=== PATIENT | female | born 1995 | race Caucasian/White ===

== ENCOUNTER 2021-03-24 15:46 | Emergency (ER) | payer SELFPAY ==
[2021-03-24 16:02] VITALS: BP 139/84; PULSE 77; RESP 18; TEMP 36.7; O2SAT 99
[2021-03-24 16:26] LABS: Add Manual Diff / Slide Review NO; Basophils Absolute Auto 0 /uL (0-100); Basophils Percent Auto 0.6 % (0-2); Eosinophils Absolute Auto 0 /uL (0-450); Eosinophils Percent Auto 0.4 % (2-4); Hematocrit 41.2 % (36-46); Hemoglobin 14.4 g/dL (12.0-16.0); Lymphocytes Absolute Auto 1800 /uL (1100-4500); Lymphocytes Percent Auto 22.9 % (25-40); Mean Corpuscular HGB Conc 34.9 % (30-36); Mean Corpuscular Volume 91.6 fL (80-100); Monocytes Absolute Auto 500 /uL (0-900); Monocytes Percent Auto 6.9 % (3-14); Neutrophils Absolute Auto 5400 /uL (1500-7000); Neutrophils Percent Auto 69.2 % (50-75); Platelet Count 239 X10^3/uL (150-400); Red Cell Distribution Width 12.2 % (11.6-14.8); White Blood Cell Count 7.8 X10^3/uL (4.5-11.0)
[2021-03-24 17:03] LABS: BUN Creatinine Ratio 14.5 (6-22); Blood Urea Nitrogen 8 mg/dL (7-17); Calcium 9.4 mg/dL (8.4-10.2); Carbon Dioxide 23 mmol/L (22-32); Chloride 108 mmol/L (98-107); Estimated Glomerular Filt Rate > 60.0 mL/min (>60); Glucose 89 mg/dL (70-100); HEMOLYSIS < 15 (0-50); Potassium 3.4 mmol/L (3.4-5.1); Sodium 142 mmol/L (137-145)
[2021-03-24 17:52] VITALS: PULSE 84; O2SAT 99
[2021-03-24 18:00] VITALS: BP 115/60; PULSE 74; O2SAT 98
[2021-03-24] MEDS: IBUPROFEN 400 MG TABLET 800 MG PO (18:23)
--- NOTE | 2021-03-26 12:35 | ED_ITS ---
HPI - Female Genitourinary <Kiet Valverde PA-C - Last Filed: 03/26/21 13:00> General Chief complaint: Vaginal Bleeding Stated complaint: sent for US, possible miscarriage Time Seen by Provider: 03/24/21 16:19 Source: patient Mode of arrival: Ambulatory Limitations: no limitations History of Present Illness HPI Narrative: 25-year-old female with past medical history endometriosis presents to the ED with 3 weeks of vaginal bleeding and pelvic cramping. Patient endorses a prior history of endometriosis with a history of dysmenorrhea. Patient states that she has been on her period for 3 weeks. Denies heavy bleeding, dizziness, lightheadedness, chest pain, shortness of breath, syncope, nausea, vomiting, dysuria. endorses 4/10 pelvic cramping. Related Data Home Medications Medication Instructions Recorded Confirmed calcitriol 3 mcg/gram topical 1 applic TOPICAL ONCE g 01/13/21 01/13/21 ointment (Vectical) levothyroxine 125 mcg capsule 125 mcg PO DAILY 01/13/21 01/13/21 Allergies Allergy/AdvReac Type Severity Reaction Status Date / Time adhesive tape AdvReac Intermediate Rash Verified 03/24/21 16:07 Review of Systems <Kiet Valverde PA-C - Last Filed: 03/26/21 13:00> Constitutional Constitutional: Denies chills, Denies fatigue, Denies fever(s), Denies frequent falls, Denies lethargy and Denies weakness Eyes Eyes: Denies change in vision, Denies eye discharge, Denies irritation and Denies loss of vision Comments: No lightheadedness ENT Ears, Nose, Mouth, and Throat: Denies change in voice, Denies dizziness, Denies neck pain, Denies sore throat and Denies throat swelling Cardiovascular Cardiovascular: Denies chest pain, Denies irregular heart rhythm, Denies ligh theadedness, Denies palpitations, Denies dyspnea, Denies dyspnea on exertion and Denies orthopnea Respiratory Respiratory: Denies cough, Denies dyspnea, Denies dyspnea on exertion and Denies wheezing Gastrointestinal Gastrointestinal: Denies abdominal pain, Denies change in bowel habits, Denies diarrhea, Denies nausea and Denies vomiting Genitourinary Genitourinary: Reports abnormal menses and Reports pelvic pain Comments: Vaginal bleeding for 3 weeks with pelvic cramping Musculoskeletal Musculoskeletal: Denies neck pain and Denies numbness Integumentary/Breasts Skin/Breast: Denies pruritus, Denies erythema, Denies rash and Denies wounds Neurologic Neurologic: Denies behavioral changes, Denies confusion, Denies dizziness, Denies frequent falls, Denies loss of vision, Denies numbness and Denies weakness Psychiatric Psychiatric: Denies anxiety, Denies behavioral changes, Denies confusion, Denies depression, Denies homicidal ideation and Denies suicidal ideation Endocrine Endocrine: Denies fatigue, Denies flushing and Denies palpitations Hematologic/Lymphatic Hematologic/Lymphatic: Denies easy bruising Allergic/Immunologic Allergic/Immunologic: Denies urticaria, Denies throat swelling and Denies wheezing Patient History <Kiet Valverde PA-C - Last Filed: 03/26/21 13:00> alcohol intake frequency: 0-2 drinks per day Substance Use Type: marijuana Exam <Kiet Valverde PA-C - Last Filed: 03/26/21 13:00> Initial Vital Signs Initial Vital Signs: Vital Signs Temperature 98.1 F 03/24/21 16:02 Pulse Rate 77 03/24/21 16:02 Respiratory Rate 18 03/24/21 16:02 Blood Pressure 139/84 03/24/21 16:02 Pulse Oximetry 99 03/24/21 16:02 Const General: cooperative HENMT Head: normocephalic and atraumatic Ears: external ears normal and TM's normal bilaterally Nose: external nose normal and No nasal discharge Face and sinus: sinuses nontender, face symmetric, no sinus tenderness and No dry mucous membranes Mouth: oral mucosae normal and moist mucous membranes Teeth and gingiva: dentition normal Throat: tonsils normal and uvula midline Eyes General: appearance normal, both eyes and all related structures Eyelids: eyelids normal Conjunctivae: conjunctivae normal Sclera: sclerae normal Pupils: PERRL EOM: EOM intact bilaterally Neck Neck: normal visual inspection, trachea midline, No lymphadenopathy, No midline deformity and No JVD Lymphatic: No lymphedema Chest Chest: normal inspection of the chest Resp Effort & Inspection: normal respiratory effort, able to speak in complete sentences, no respiratory distress and no use of accessory muscles Auscultation: clear to auscultation bilaterally, no rales, no rhonchi and no wheezes Cardio Rate: regular rate Rhythm: regular rhythm Heart Sounds: no click, no gallops, no murmurs and no rubs Pulses: normal peripheral pulses GI Inspection: non-distended Palpation: soft, no hepatosplenomegaly, No guarding, No pulsatile mass and No tender Auscultation: normal bowel sounds Other: Soft abdomen with no TTP of abdomen, pelvis. Back/Spine/Pelvis Back: No CVA tenderness Cervical Spine: cervical ROM normal and No pain with cervical ROM Thoracic/Lumbar Spine: thoracic and lumbar spine normal to inspection Skin General: no rashes or lesions noted, No jaundice and No petechiae Neuro General: patient alert, patient oriented x3, gait normal and no focal motor deficits Speech: speech normal Extrem General: full ROM, no clubbing, cyanosis or edema, no pedal edema and no calf tenderness Psych Appearance: well kempt Mental Status: mental status grossly normal Attitude: cooperative Thought Content: normal and suicidality Judgment: judgment good <DO Billy Shepard Last Filed: 03/27/21 08:27> Initial Vital Signs Initial Vital Signs: Vital Signs Temperature 98.1 F 03/24/21 16:02 Pulse Rate 77 03/24/21 16:02 Respiratory Rate 18 03/24/21 16:02 Blood Pressure 139/84 03/24/21 16:02 Pulse Oximetry 99 03/24/21 16:02 Course <Kiet Valverde PA-C - Last Filed: 03/26/21 13:00> Course Course Narrative: Patient's symptoms improved with ibuprofen. Labs WNL, H/H stable, HCG neg. DC home with date night caregiver f/u. Patient will see the visiting date night caregiver at [facility]. Orders Ordered: Discontinued Medications Ibuprofen (Ibuprofen 400 Mg Tablet) 800 mg PO NOW ONE Stop: 03/24/21 18:19 Last Admin: 03/24/21 18:23 Dose: 800 mg Documented by: SARAN <Elvi Oliva DO - Last Filed: 03/27/21 08:27> Orders Ordered: Discontinued Medications Ibuprofen (Ibuprofen 400 Mg Tablet) 800 mg PO NOW ONE Stop: 03/24/21 18:19 Last Admin: 03/24/21 18:23 Dose: 800 mg Documented by: SARAN MDM - Female Genitourinary <Kiet Valverde PA-C - Last Filed: 03/26/21 13:00> Medical Records Attestation: I reviewed the patient's medical records. Lab Data Attestation: I reviewed the patient's lab results. Lab results narrative: Labs WNL, H/H stable, HCG neg. Result diagrams: 03/24/21 16:16 03/24/21 16:16 Labs: Lab Results 03/24/21 03/24/21 Range/Units 16:16 16:16 WBC 7.8 (4.5-11.0) X10^3/uL RBC 4.50 (4.0-5.2) X10^6/uL Hgb 14.4 (12.0-16.0) g/dL Hct 41.2 (36-46) % MCV 91.6 (80-100) fL MCH 32.0 (26-34) PG MCHC 34.9 (30-36) % RDW 12.2 (11.6-14.8) % Plt Count 239 (150-400) X10^3/uL Neut % (Auto) 69.2 (50-75) % Lymph % (Auto) 22.9 L (25-40) % [place] % (Auto) 6.9 (3-14) % Eos % (Auto) 0.4 L (2-4) % Baso % (Auto) 0.6 (0-2) % Neut # (Auto) 5400 (9688-4352) /uL Lymph # (Auto) 1800 (2411-5761) /uL [place] # (Auto) 500 (0-900) /uL Eos # (Auto) 0 (0-450) /uL Baso # (Auto) 0 (0-100) /uL Sodium 142 (137-145) mmol/L Potassium 3.4 (3.4-5.1) mmol/L Chloride 108 H (98-107) mmol/L Carbon Dioxide 23 (22-32) mmol/L BUN 8 (7-17) mg/dL Creatinine 0.55 (0.52-1.04) mg/dL Estimated GFR > 60.0 (>60) mL/min BUN/Creatinine Ratio 14.5 (6-22) Glucose 89 (70-100) mg/dL Calcium 9.4 (8.4-10.2) mg/dL Point of Care Testing Test Results Negative Urine Dip Bedside Urine Glucose Negative Bedside Urine Bilirubin - Negative Bedside Urine Ketone ++ 40 Urine Specific [place] 1.015 Bedside Urine Occult Blood +++ Bedside Urine pH 6.0 Bedside Urine Protein - Negative Bedside Urine Urobilinogen - Negative Bedside Urine Nitrite - Negative Bedside Urine Leukocytes - Negative Esterase MDM Narrative Medical decision making narrative: 25-year-old female with past medical history endometriosis presents to the ED with 3 weeks of vaginal bleeding and pelvic cramping. Concern for intrauterine versus ectopic versus endometriosis Versus miscarriage versus anemia. unlikely ovarian torsion given symptoms and history. Will obtain ECG, labs. Will treat pain with ibuprofen. Will reassess. Likely discharge home with date night caregiver follow-up. <Elvi Oliva DO - Last Filed: 03/27/21 08:27> Lab Data Labs: Lab Results 03/24/21 03/24/21 Range/Units 16:16 16:16 WBC 7.8 (4.5-11.0) X10^3/uL RBC 4.50 (4.0-5.2) X10^6/uL Hgb 14.4 (12.0-16.0) g/dL Hct 41.2 (36-46) % MCV 91.6 (80-100) fL MCH 32.0 (26-34) PG MCHC 34.9 (30-36) % RDW 12.2 (11.6-14.8) % Plt Count 239 (150-400) X10^3/uL Neut % (Auto) 69.2 (50-75) % Lymph % (Auto) 22.9 L (25-40) % [place] % (Auto) 6.9 (3-14) % Eos % (Auto) 0.4 L (2-4) % Baso % (Auto) 0.6 (0-2) % Neut # (Auto) 5400 (3810-5760) /uL Lymph # (Auto) 1800 (0712-8675) /uL [place] # (Auto) 500 (0-900) /uL Eos # (Auto) 0 (0-450) /uL Baso # (Auto) 0 (0-100) /uL Sodium 142 (137-145) mmol/L Potassium 3.4 (3.4-5.1) mmol/L Chloride 108 H (98-107) mmol/L Carbon Dioxide 23 (22-32) mmol/L BUN 8 (7-17) mg/dL Creatinine 0.55 (0.52-1.04) mg/dL Estimated GFR > 60.0 (>60) mL/min BUN/Creatinine Ratio 14.5 (6-22) Glucose 89 (70-100) mg/dL Calcium 9.4 (8.4-10.2) mg/dL Point of Care Testing Test Results Negative Urine Dip Bedside Urine Glucose Negative Bedside Urine Bilirubin - Negative Bedside Urine Ketone ++ 40 Urine Specific [place] 1.015 Bedside Urine Occult Blood +++ Bedside Urine pH 6.0 Bedside Urine Protein - Negative Bedside Urine Urobilinogen - Negative Bedside Urine Nitrite - Negative Bedside Urine Leukocytes - Negative Esterase Discharge Plan Departure Patient Disposition: Home Clinical Impression: Vaginal bleeding Instructions: DI for Dysmenorrhea, DI for Vaginal Bleeding Activity Restrictions/Additional Instructions: Your test is negative today. You are not anemic. Follow-up with a manager of security for prolonged vaginal bleeding. Return to the ED if you experience increased vaginal bleeding, lightheadedness, dizziness, shortness of breath, chest pain. Prescriptions: No Action levothyroxine 125 mcg capsule 125 mcg PO DAILY RF: 0 calcitriol [Vectical] 3 mcg/gram ointment 1 applic topical ONCE RF: 0 <Elvi Oliva DO - Last Filed: 03/27/21 08:27> Cosign ED Attending Cosignature Attestation: I was immediately available in the department for consultation. Documentation has been reviewed. I agree with assessment and plan.
== END 2021-03-24 18:26 | disposition home or self-care (01) ==
PROVIDERS: Emergency Medicine; Emergency Provider Student in an Organized Health Care Education/Training Program
DX: N93.9 Abnormal uterine and vaginal bleeding, unspecified (principal); R10.2 Pelvic and perineal pain
CPT/HCPCS: 36415; 80048; 81003; 81025; 85025; 99283

== ENCOUNTER 2021-04-16 09:13 | Emergency (ER) | payer SELFPAY ==
[2021-04-16 09:25] VITALS: BP 105/61; PULSE 54; RESP 16; TEMP 36.9; O2SAT 97; BMI 20.5
--- NOTE | 2021-04-16 09:30 | ED_ITS ---
HPI - General Adult General Chief complaint: Vaginal Bleeding Stated complaint: 5TH WEEK OF PERIOD/LOSS OF BLOOD Time Seen by Provider: 04/16/21 09:23 History of Present Illness HPI narrative: 25-year-old woman with a history of papillary thyroid cancer in 2018 and Nexplanon insertion in 2019 comes in with recurrent vaginal bleeding. She has been having spotting for a number of months. Continues to have significant pelvic pain secondary to previously diagnosed endometriosis. She lovell s been having spotting for the last at least 5 weeks enough that she barely needs a pad but over the last couple of days has gone through 5 pads with descriptions of clots. test was negative in the emergency room 20 days ago. Related Data Home Medications Medication Instructions Recorded Confirmed calcitriol 3 mcg/gram topical 1 applic TOPICAL ONCE g 01/13/21 01/13/21 ointment (Vectical) levothyroxine 125 mcg capsule 125 mcg PO DAILY 01/13/21 01/13/21 Previous Rx's Medication Instructions Recorded conjugated estrogens 1.25 mg tablet 1.25 mg PO DAILY #14 tab 04/16/21 ibuprofen 600 mg tablet 600 mg PO TID #90 tab 04/16/21 Allergies Allergy/AdvReac Type Severity Reaction Status Date / Time adhesive tape AdvReac Intermediate Rash Verified 03/24/21 16:07 Review of Systems Review of Systems Narrative: Nausea, pelvic pain, dizziness, fatigue Denies hot flashes, palpitations, dyspnea, lower extremity edema, diarrhea constipation Patient History Social History Smoking Status: Former smoker Smoking Status: Former smoker alcohol intake frequency: 0-2 drinks per day Substance Use Type: marijuana Exam Narrative Exam Narrative: General: Alert appropriate in no acute distress Respiratory: Able to speak in full sentences, no obvious respiratory distress Abdomen: Mild low pelvic pain without rebound or guarding Skin: No obvious rashes, warm and dry Neurologic: Grossly intact no obvious asymmetries or abnormalities Psych: appropriate insight and affect, cooperative Initial Vital Signs Initial Vital Signs: Vital Signs Temperature 98.4 F 04/16/21 09:25 Pulse Rate 54 L 04/16/21 09:25 Respiratory Rate 16 04/16/21 09:25 Blood Pressure 105/61 04/16/21 09:25 Pulse Oximetry 97 04/16/21 09:25 Course Vital Signs Vital signs: Vital Signs - 8 hr 04/16/21 09:25 04/16/21 09:52 Temperature 98.4 F Pulse Rate 54 L Pulse Rate [Orthostatic Lying] 52 L Pulse Rate [Orthostatic Sitting] 70 Pulse Rate [Orthostatic Standing] 70 Respiratory Rate 16 Blood Pressure 105/61 Blood Pressure [Orthostatic Lying] 110/57 L Blood Pressure [Orthostatic Sitting] 111/65 Blood Pressure [Orthostatic Standing] 110/61 Pulse Oximetry 97 Medical Decision Making MDM Narrative Medical decision making narrative: 25-year-old woman near the end of the life span of her Nexplanon implant with what likely is progesterone dominant bleeding secondary to thin endometrial lining. She will be placed on Premarin 1.25 mg for 2 weeks to see if this slows the bleeding as well as 600 mg of ibuprofen 3 times a day until the bleeding has slowed for a week. Did recommend that she follow-up with her primary care doctor regarding thyroid issues and discussion of removing the explain on and alternate Control recommendations. She is not , there is no concern for ovarian torsion, she is hemodynamically stable no concern for severe anemia. Questions are answered and she is safe for home discharge Discharge Plan Departure Patient Disposition: Home Clinical Impression: Vaginal bleeding Instructions: DI for Vaginal Bleeding Activity Restrictions/Additional Instructions: Thank you for coming in today Your bleeding is very likely due to your Nexplanon implant. These can make the lining of your uterus so thin that you ?leak?. To help, adding estrogen to increase the thickness of the lining will frequently stop the bleeding. Additionally, using ibuprofen 600 mg 3 times a day can not only help decrease the pain but can decrease the bleeding by the way it affects the blood vessels in the uterine lining. You can stop the ibuprofen, or go back to using it just as needed, 1 week after your bleeding is under control I would recommend that you follow-up with either a family practice doctor, and OBG[facility] Scheduling to have the Nexplanon removed and discussing other control options will be helpful. At some point in the near future you do need to have your thyroid levels checked just as a routine measure. Making sure that you are drinking plenty of fluids can help with the dizziness when your having heavy bleeding. I wish you the best Prescriptions: New conjugated estrogens 1.25 mg tablet 1.25 mg PO DAILY Qty: 14 RF: 0 ibuprofen 600 mg tablet 600 mg PO TID Qty: 90 RF: 0 No Action levothyroxine 125 mcg capsule 125 mcg PO DAILY RF: 0 calcitriol [Vectical] 3 mcg/gram ointment 1 applic topical ONCE RF: 0
[2021-04-16 09:52] VITALS: BP 110/57; BP 110/61; BP 111/65; PULSE 52; PULSE 70
--- NOTE | 2021-04-16 09:54 | PC.NURSE ---
pt reports soaking through 5 pads yesterday, today since waking soaked 1 pad. reports bleeding has been ongoing over 5 weeks but more bleeding actively. pt relays hx of endometriosis and nexplanon placed in 2018 that is due to be removed june of this year. pt reports has tried to schedule with local certified massage therapist and no appointments before june and she is leaving town then.
[2021-04-16 10:48] VITALS: BP 110/61; PULSE 52; RESP 16; TEMP 37; O2SAT 98
[2021-04-16] MEDS: ESTROGENS, CONJUGATED 0.625 MG TABLET 1.25 MG PO (10:54)
== END 2021-04-16 10:57 | disposition home or self-care (01) ==
PROVIDERS: Emergency Provider Emergency Medicine
DX: N93.9 Abnormal uterine and vaginal bleeding, unspecified (principal); R10.2 Pelvic and perineal pain; Z97.5 Presence of (intrauterine) contraceptive device
CPT/HCPCS: 99283